=== PATIENT | male | born 1980 | race Caucasian/White ===

== ENCOUNTER 2017-04-15 23:33 | Emergency (ER) | payer BC, OTHER ==
[~2017-04-15] VITALS: Ht 172.7 cm; Wt 110.2 kg
[~2017-04-15 23:33] MED LIST: AMLO1TAB84
[2017-04-15 23:37] VITALS: Ht 172.7 cm; Wt 110.2 kg
[2017-04-16] MEDS ORDERED: ONDANSETRON 4 MG INJ IV STA (00:12)
[2017-04-16] MEDS ORDERED: KETOROLAC 30 MG INJ IV STA (00:12)
[2017-04-16] MEDS ORDERED: LACTATED RINGER'S 1,000 ML IV ONE (00:30)
[2017-04-16 00:45] LABS: BASOPHIL # 0.1 10^3/ul (0.0-0.1); BASOPHILS % 0.7 % (0.0-2.0); EOSINOPHILS # 0.2 10^3/ul (0.0-0.5); EOSINOPHILS % 2.2 % (0.0-7.0); HEMATOCRIT 44.2 % (42.0-52.0); LYMPHOCYTES # 2.6 10^3/ul (0.8-2.9); LYMPHOCYTES % 26.4 % (15.0-51.0); MEAN CORPUSCULAR HEMOGLOBIN 28.4 pg (29.0-33.0); MEAN CORPUSCULAR HGB CONC 33.9 g/dl (32.0-37.0); MEAN CORPUSCULAR VOLUME 83.7 fl (82.0-101.0); MEAN PLATELET VOLUME 10.6 fl (7.4-10.4); MONOCYTE # 0.7 10^3/ul (0.3-0.9); MONOCYTES % 7.4 % (0.0-11.0); NEUTROPHIL # 6.1 10^3/ul (1.6-7.5); NEUTROPHILS % 62.7 % (39.0-77.0); PLATELET COUNT 253 10^3/UL (140-415); RED BLOOD COUNT 5.28 10^6/ul (4.70-6.10); RED CELL DISTRIBUTION WIDTH 12.9 % (11.5-14.5); WHITE BLOOD COUNT 9.7 10^3/ul (4.8-10.8)
[2017-04-16 01:03] LABS: ADD UMIC YES; UR ASCORBIC ACID NEGATIVE (NEGATIVE); UR BILIRUBIN (Dip) NEGATIVE (NEGATIVE); UR BLOOD (Dip) 2+ mg/dL (NEGATIVE); UR CLARITY CLEAR (CLEAR); UR COLOR STRAW (YELLOW); UR GLUCOSE (Dip) NEGATIVE (NEGATIVE); UR KETONES (Dip) NEGATIVE (NEGATIVE); UR LEUKOCYTE ESTERASE (Dip) NEGATIVE Leu/ul (NEGATIVE); UR NITRITE (Dip) NEGATIVE (NEGATIVE); UR RBC 31 /HPF (0-5); UR TOTAL PROTEIN (Dip) NEGATIVE (NEGATIVE); UR UROBILINOGEN (Dip) NEGATIVE (NEGATIVE)
[2017-04-16 01:06] LABS: ALBUMIN 4.3 g/dl (3.3-4.9); ALBUMIN/GLOBULIN RATIO 1.13; BILIRUBIN,INDIRECT 0.3 mg/dl (0-1.1); BILIRUBIN,TOTAL 0.3 mg/dl (0.2-1.3); CALCIUM 9.3 mg/dl (8.4-10.2); CREATININE 0.98 mg/dl (0.61-1.24); POTASSIUM 3.4 mmol/L (3.5-5.1); TOTAL PROTEIN 8.1 g/dl (6.1-8.1)
--- NOTE | 2017-04-16 01:36 | RADRPT ---
PROCEDURE: CT Abdomen and pelvis without contrast. CLINICAL INDICATION: Abdominal pain. TECHNIQUE: CT scan of the abdomen and pelvis was performed on a multi-detector high-resolution CT scanner. Contiguous axial images were obtained from the lung bases to the ischial tuberosities wit hout intravenous contrast. Coronal and sagittal reformatted images were also obtained. Images were reviewed on the PACS workstation. DICOM images are available. One or more of the following dose reduction techniques were used: - Automated exposure control. - Adjustment of the mA and/or kV according to patient size. - Use of iterative reconstruction technique. Exam CTD/vol = 21.84 mGy. Total exam DLP = 1552.01 mGy-cm. COMPARISON: None. FINDINGS: Evaluation of the lung bases demonstrates mild bibasilar atelectasis. Abdomen: The liver is normal in size and diffusely low in attenuation consistent with fatty infiltr ation. There is no focal mass or dilatation of the biliary tree. The gallbladder is not distended. The spleen, pancreas and bilateral adrenal glands are within normal limits. Bilateral kidneys are normal in size with no contour deforming mass identified. There is no radiopaque renal calculus id entified. There is mild right-sided hydronephrosis. There is a 4 mm calculus within the right proxi mal ureter. There is a left mesenteric calcification measuring 3.6 x 3.1 cm. The abdominal aorta i s of normal caliber. There is no abnormal bowel wall thickening or distension. There is no bowel obstruction or free air . A normal appendix is identified. There is no diverticulosis or diverticulitis. There is no asci jennyfer. Pelvis: The bladder is unremarkable. There is a small left inguinal hernia containing fat. The pr ostate and seminal vesicles are within normal limits. There is no significant pelvic adenopathy or free fluid. Evaluation of the osseous structures demonstrates no suspicious lytic or blastic lesion. IMPRESSION: Right proximal ureteral 4 mm calculus with mild right-sided hydronephrosis. Left mesenteric calcification suggestive of old infectious/granulomatous disease. Fatty infiltration of the liver. Small left inguinal hernia containing fat. .Meño Taylor MD, Date Time Electronically viewed and signed by .Meño Taylor MD, on 04/16/2017 01:36 .T/
[2017-04-16] MEDS ORDERED: morphine 4 MG/ML VIAL IV STA (02:19)
[2017-04-16] MEDS ORDERED: HYDR-906 PO (02:21)
[2017-04-16] MEDS ORDERED: TAMS-14 PO (02:21)
[2017-04-16] MEDS ORDERED: IBUP-1542 PO (02:21)
[2017-04-16] MEDS ORDERED: ONDA4TAB14 PO (02:22)
--- NOTE | 2017-04-16 02:29 | ERD ---
ER Documentation Chief Complaint Chief Complaint R flank pain radiating to front just 2 mins ago HPI Patient is a 37-year-old male who presents to the ED for concerns of right flank pain radiating to his right lower quadrant started 1 hour prior to arrival. Patient states the pain is constant. Patient reports nausea and vomiting. Patient states he vomited approximately 5-6 times due to the pain. Patient denies any fevers, chills, dysuria, frequency, hematuria. Patient denies any falls or trauma. Patient denies any chest pain, shortness breath, left upper extremity pain, loss of consciousness. Patient denies any previous history of kidney stones. ROS All systems reviewed and are negative except as per history of present illness. Medications Home Meds Active Scripts Ondansetron (Ondansetron Odt) 4 Mg Tab.rapdis, 4 MG PO Q6H Y for NAUSEA AND/OR VOMITING, #10 TAB Prov:YU VILLELA PA-C 04/16/17 Ibuprofen* (Motrin*) 600 Mg Tab, 600 MG PO Q6, #30 TAB Prov:YU VILLELA PA-C 04/16/17 Tamsulosin Hcl* (Flomax*) 0.4 Mg Cap.er.24h, 0.4 MG PO BID, #30 CAP Prov:YU VILLELA PA-C 04/16/17 Hydrocodone/Acetaminophen ([place] 5-325 Tablet) 1 Each Tablet, 1 TAB PO Q6H Y for PAIN, #7 TAB Prov:YU VILLELA PA-C 04/16/17 Reported Medications Amlodipine-Olmesartan (Mahnaz) 1 Tab Tablet 04/09/10 Allergies Allergies: Coded Allergies: No Known Allergies (Verified Allergy, Mild, 04/09/10) PMhx/Soc History of Surgery: No Anesthesia Reaction: No Hx Neurological Disorder: No Hx Respiratory Disorders: No Hx Cardiac Disorders: Yes (HTN) Hx Psychiatric Problems: No Hx Miscellaneous Medical Probl: No Hx Alcohol Use: No Hx Substance Use: No Hx Tobacco Use: No Smoking Status: Never smoker Physical Exam Vitals Vital Signs Date Time Temp Pulse Resp B/P Pulse Ox O2 Delivery O2 Flow Rate FiO2 04/15/17 23:37 99.1 96 18 148/86 98 Physical Exam GENERAL: Well-developed, well-nourished male. Appears in pain. Patient noted to have difficulty finding position of comfort on gurney. HEAD: Normocephalic, atraumatic. EYES: Pupils are equally reactive bilaterally. EOMs grossly intact. No conjunctival erythema. ENT: Moist mucous membranes. No uvula deviation. No kissing tonsils. NECK: Supple. No meningismus. Normal range of motion of the neck. LUNG: Clear to auscultation bilaterally. No rhonchi, wheezing, rales or coarse breath sounds. HEART: Regular rate and rhythm. No murmurs, rubs or gallops. ABDOMEN: No scars, ecchymosis or rashes noted. Soft, and nondistended. Tender to palpation in the right lower quadrant. Positive bowel sounds in all four quadrants. No rebound tenderness, no guarding. (-) McBurney's point tenderness. R CVA tenderness. BACK: No midline tenderness. EXTREMITIES: Equal pulses bilaterally. No peripheral clubbing, cyanosis or edema. No unilateral leg swelling. NEUROLOGIC: Alert and oriented. Moving all four extremities without any difficulty. Normal speech. Steady gait. SKIN: Normal color. Warm and dry. No rashes or lesions. Result Diagram: 04/16/17 0020 04/16/17 0020 Results 24 hrs Laboratory Tests Test 04/16/17 00:20 White Blood Count 9.710^3/ul Red Blood Count 5.2810^6/ul Hemoglobin 15.0g/dl Hematocrit 44.2% Mean Corpuscular Volume 83.7fl Mean Corpuscular Hemoglobin 28.4pg Mean Corpuscular Hemoglobin Concent 33.9g/dl Red Cell Distribution Width 12.9% Platelet Count 51461^3/UL Mean Platelet Volume 10.6fl Neutrophils % 62.7% Lymphocytes % 26.4% Monocytes % 7.4% Eosinophils % 2.2% Basophils % 0.7% Nucleated Red Blood Cells % 0.0/100WBC Neutrophils # 6.110^3/ul Lymphocytes # 2.610^3/ul Monocytes # 0.710^3/ul Eosinophils # 0.210^3/ul Basophils # 0.110^3/ul Nucleated Red Blood Cells # 0.010^3/ul Urine Color STRAW Urine Clarity CLEAR Urine pH 7.0 Urine Specific [place] 1.010 Urine Ketones NEGATIVEmg/dL Urine Nitrite NEGATIVEmg/dL Urine Bilirubin NEGATIVEmg/dL Urine Urobilinogen NEGATIVEmg/dL Urine Leukocyte Esterase NEGATIVELeu/ul Urine Microscopic RBC 31/HPF Urine Microscopic WBC 1/HPF Urine Hemoglobin 2+mg/dL Urine Glucose NEGATIVEmg/dL Urine Total Protein NEGATIVEmg/dl Sodium Level 147mmol/L Potassium Level 3.4mmol/L Chloride Level 104mmol/L Carbon Dioxide Level 31mmol/L Anion Gap 15 Blood Urea Nitrogen 13mg/dl Creatinine 0.98mg/dl Glucose Level 138mg/dl Calcium Level 9.3mg/dl Total Bilirubin 0.3mg/dl Direct Bilirubin 0.00mg/dl Indirect Bilirubin 0.3mg/dl Aspartate Amino Transf (AST/SGOT) 43IU/L Alanine Aminotransferase (ALT/SGPT) 84IU/L Alkaline Phosphatase 92IU/L Total Protein 8.1g/dl Albumin 4.3g/dl Globulin 3.80g/dl Albumin/Globulin Ratio 1.13 Lipase 120U/L Current Medications Medications (Trade) Dose Ordered Sig/Tatiana Route PRN Reason Start Time Stop Time Status Last Admin Dose Admin Ondansetron HCl (Zofran Inj) 4 mg ONCE STAT IV 04/16/17 00:12 04/16/17 00:15 DC 04/16/17 00:36 Ketorolac Tromethamine 30 mg 30 mg ONCE STAT IV 04/16/17 00:12 04/16/17 00:15 DC 04/16/17 00:36 Lactated Ringer's (Lr) 1,000 ml @ 1,000 mls/hr Q1H ONCE IV 04/16/17 00:30 04/16/17 01:29 DC 04/16/17 00:36 Morphine Sulfate (morphine) 4 mg ONCE STAT IV 04/16/17 02:19 04/16/17 02:20 DC 04/16/17 02:40 Procedures/MDM ED COURSE: The patient was stable throughout ED course. I kept the patient and/or family informed of laboratory and diagnostic imaging results throughout the ED course. DIAGNOSTIC IMAGING: Read by radiologist. Patient: KARUNA ACOSTA : 1980 Age: 37 Sex: M MR #: [id number] DOS: 04/16/17 0012 Ordering MD: YU VILLELA PA-C Location: [facility] Room/Bed: PROCEDURE: CT Abdomen and pelvis without contrast. CLINICAL INDICATION: Abdominal pain. TECHNIQUE: CT scan of the abdomen and pelvis was performed on a multi- detector high-resolution CT scanner. Contiguous axial images were obtained from the lung bases to the ischial tuberosities without intravenous contrast. Coronal and sagittal reformatted images were also obtained. Images were reviewed on the PACS workstation. DICOM images are available. One or more of the following dose reduction techniques were used: - Automated exposure control. - Adjustment of the mA and/or kV according to patient size. - Use of iterative reconstruction technique. Exam CTD/vol = 21.84 mGy. Total exam DLP = 1552.01 mGy-cm. COMPARISON: None. FINDINGS: Evaluation of the lung bases demonstrates mild bibasilar atelectasis. Abdomen: The liver is normal in size and diffusely low in attenuation consistent with fatty infiltration. There is no focal mass or dilatation of the biliary tree. The gallbladder is not distended. The spleen, pancreas and bilateral adrenal glands are within normal limits. Bilateral kidneys are normal in size with no contour deforming mass identified. There is no radiopaque renal calculus identified. There is mild right-sided hydronephrosis. There is a 4 mm calculus within the right proximal ureter. There is a left mesenteric calcification measuring 3.6 x 3.1 cm. The abdominal aorta is of normal caliber. There is no abnormal bowel wall thickening or distension. There is no bowel obstruction or free air. A normal appendix is identified. There is no diverticulosis or diverticulitis. There is no ascites. Pelvis: The bladder is unremarkable. There is a small left inguinal hernia containing fat. The prostate and seminal vesicles are within normal limits. There is no significant pelvic adenopathy or free fluid. Evaluation of the osseous structures demonstrates no suspicious lytic or blastic lesion. IMPRESSION: Right proximal ureteral 4 mm calculus with mild right-sided hydronephrosis. Left mesenteric calcification suggestive of old infectious/granulomatous disease. Fatty infiltration of the liver. Small left inguinal hernia containing fat. .Meño Taylor MD, MD Date Time Electronically viewed and signed by .Meño Taylor MD, MD on 04/16/2017 01:36 .T/ CC: YU VILLELA PA-C PROCEDURES: None. MEDICATIONS GIVEN: Lactated Ringer's, Zofran, Toradol, morphine Patient tolerated medication well with no adverse reactions. Patient reported improvement in pain. MEDICAL DECISION MAKING: This is a 37-year-old male presents with right-sided flank pain radiating into his right lower quadrant 1 hour.. Vital signs were reviewed. Patient was afebrile. CBC showed no evidence of systemic infection or severe anemia. CMP showed no evidence of significant electrolyte abnormalities, severe acidosis, alkalosis, renal failure, or liver disease. Urine was positive for RBCs and hemoglobin. CT scan was obtained. CT scan showed Right proximal ureteral 4 mm calculus with mild right-sided hydronephrosis. Left mesenteric calcification suggestive of old infectious/granulomatous disease. Fatty infiltration of the liver. Small left inguinal hernia containing fat. He was given Toradol and morphine here in the ED. Patient reported improvement in pain prior to discharge. I advised the patient that he will need to follow-up with the urologist for his kidney stone. Referral information provided. At this time, patient's presentation is most consistent with nephrolithiasis and fatty infiltration of the liver. Low Suspicion for septic stone, sepsis, pyelonephritis, appendicitis, diverticulitis , kidney injury, bowel obstruction, bowel perforation. PRESCRIPTIONS: [place] Ibuprofen Tamsulosin. Zofran DISCHARGE: At this time, patient is stable for discharge and outpatient management. Patient was given a copy of all imaging studies and blood work obtained today. Patient advised to follow-up with urologist. Referral information provided. I have instructed the patient to follow-up with his/her primary care physician in 1-2 days. If symptoms persist, patient may need to see a specialist for further examinations and testing. I have instructed the patient to promptly return to the ER at any time for any new or worsening symptoms including increased increased pain, fever, nausea, vomiting, urinary changes or weakness. The patient and/or family expressed understanding of and agreement with this plan. All questions were answered. Home care instructions were provided. Patients blood pressure was elevated (>120/80) but appears stable without evidence of hypertensive emergency, hypertensive urgency or end-organ failure. I had discussion with the patient about the risks of hypertension. I have advised the patient to follow up with his/her primary care physician for outpatient monitoring and treatment for hypertension in 2-3 days. I have instructed the patient to return to the ER for any new or worsening symptoms including chest pain, shortness of breath, headache, blurred vision, confusion, nausea, vomiting or LOC. Disclaimer: Inadvertent spelling and grammatical errors are likely due to EHR/ dictation software use and do not reflect on the overall quality of patient care. Also, please note that the electronic time recorded on this note does not necessarily reflect the actual time of the patient encounter. Departure Diagnosis: Primary Impression: Nephrolithiasis Additional Impression: Fatty infiltration of liver Condition: Stable Patient Instructions: Kidney Stone W/ Colic Referrals: TIFFANY BAHENA MD,NICOLASA CHASE,EB SIU,KARL OSULLIVAN,MORGAN PLASCENCIA,DAYANA PEDRO,ASTRID HERRERA,FELIPE DE LA ROSA= [facility] YOU HAVE RECEIVED A MEDICAL SCREENING EXAM AND THE RESULTS INDICATE THAT YOU DO NOT HAVE A CONDITION THAT REQUIRES URGENT TREATMENT IN THE EMERGENCY DEPARTMENT. FURTHER EVALUATION AND TREATMENT OF YOUR CONDITION CAN WAIT UNTIL YOU ARE SEEN IN YOUR DOCTORS OFFICE WITHIN THE NEXT 1-2 DAYS. IT IS YOUR RESPONSIBILITY TO MAKE AN APPOINTMENT FOR FOLOW-UP CARE. IF YOU HAVE A PRIMARY DOCTOR --you should call your primary doctor and schedule an appointment IF YOU DO NOT HAVE A PRIMARY DOCTOR YOU CAN CALL OUR PHYSICIAN REFERRAL HOTLINE AT IF YOU CAN NOT AFFORD TO SEE A PHYSICIAN YOU CAN CHOSE FROM THE FOLLOWING [facility] [address] [facility] [address] [facility] [facility] [address] [facility] [address] [facility] [address] [facility]. [facility]. [address] [facility]. [facility] YOU HAVE RECEIVED A MEDICAL SCREENING EXAM AND THE RESULTS INDICATE THAT YOU DO NOT HAVE A CONDITION THAT REQUIRES URGENT TREATMENT IN THE EMERGENCY DEPARTMENT. FURTHER EVALUATION AND TREATMENT OF YOUR CONDITION CAN WAIT UNTIL YOU ARE SEEN IN YOUR DOCTORS OFFICE WITHIN THE NEXT 1-2 DAYS. IT IS YOUR RESPONSIBILITY TO MAKE AN APPOINTMENT FOR FOLOW-UP CARE. IF YOU HAVE A PRIMARY DOCTOR --you should call your primary doctor and schedule and appointment IF YOU DO NOT HAVE A PRIMARY DOCTOR YOU CAN CALL OUR PHYSICIAN REFERRAL HOTLINE AT . IF YOU CAN NOT AFFORD TO SEE A PHYSICIAN YOU CAN CHOSE FROM THE FOLLOWING [facility] INSTITUTIONS: [facility] [address] [place] [address] [facility] [address] [place] [address] [facility] [address] [place] [address] Additional Instructions: Drink plenty of fluids. Follow-up with the urologist on an outpatient basis. Call your primary care doctor TOMORROW for an appointment during the next 1-2 days.See the doctor sooner or return here if your condition worsens before your appointment time. YU VILLELA PA-C Apr 16, 2017 02:29
== END 2017-04-16 03:05 | disposition home or self-care (01) ==
LOC: FTE 23:33
DX: N20.0 Calculus of kidney (principal); K76.0 Fatty (change of) liver, not elsewhere classified; I10 Essential (primary) hypertension
CPT/HCPCS: 36415; 74176; 80053; 81001; 83690; 85025; 96374; 96375; 99285; J1885; J2270; J2405; J7120

== ENCOUNTER 2017-05-07 12:52 | Emergency (ER) | payer OTHER ==
[~2017-05-07] VITALS: Wt 109.4 kg
[~2017-05-07 12:52] MED LIST changes: +HYDR-906 PO; +IBUP-1542 PO; +ONDA4TAB14 PO; +TAMS-14 PO
[2017-05-07] MEDS ORDERED: KETOROLAC 30 MG INJ IV STA (14:54)
[2017-05-07] MEDS ORDERED: SOD CHLORIDE 0.9% 1,000 ML IV STA (14:54)
[2017-05-07] MEDS ORDERED: ONDANSETRON 4 MG INJ IV STA (14:54)
--- NOTE | 2017-05-07 15:03 | ERD ---
ER Documentation Chief Complaint Chief Complaint BACK PAIN, PAIN WITH URINATION HPI 37-year-old male history 4 mm kidney stone diagnosed 3 weeks ago returns to the emergency department for ongoing flank pain which radiates into his testicles with associated dysuria and increased frequency. Patient states he was seen by the emergency department and underwent CT imaging which demonstrated proximal 4 mm stone. Patient states he has not seen a stone passed yet and complains of intermittent pain. States he took a Motrin prior to arrival and currently reports a throbbing 4 out of 10 right-sided flank pain. He denies any testicular swelling or redness. He denies any hematuria or discharge. Denies fever chills. He denies other abdominal pain, nausea, vomiting, or diarrhea. ROS All systems reviewed and are negative except as per history of present illness. Medications Home Meds Active Scripts Ondansetron (Ondansetron Odt) 4 Mg Tab.rapdis, 4 MG PO Q6H Y for NAUSEA AND/OR VOMITING, #10 TAB Prov:YU VILLELA PA-C 04/16/17 Ibuprofen* (Motrin*) 600 Mg Tab, 600 MG PO Q6, #30 TAB Prov:YU VILLELA PA-C 04/16/17 Tamsulosin Hcl* (Flomax*) 0.4 Mg Cap.er.24h, 0.4 MG PO BID, #30 CAP Prov:YU VILLELA PA-C 04/16/17 Hydrocodone/Acetaminophen ([place] 5-325 Tablet) 1 Each Tablet, 1 TAB PO Q6H Y for PAIN, #7 TAB Prov:YU VILLELA PA-C 04/16/17 Reported Medications Amlodipine-Olmesartan (Mahnaz) 1 Tab Tablet 04/09/10 Allergies Allergies: Coded Allergies: No Known Allergies (Verified Allergy, Mild, 04/09/10) PMhx/Soc History of Surgery: No Anesthesia Reaction: No Hx Neurological Disorder: No Hx Respiratory Disorders: No Hx Cardiac Disorders: Yes (HTN) Hx Psychiatric Problems: No Hx Miscellaneous Medical Probl: No Hx Alcohol Use: No Hx Substance Use: No Hx Tobacco Use: No Smoking Status: Never smoker Physical Exam Vitals Vital Signs Date Time Temp Pulse Resp B/P Pulse Ox O2 Delivery O2 Flow Rate FiO2 05/07/17 12:59 98.4 100 17 159/89 97 Physical Exam Const: Developed, well-nourished, in no acute distress Head: Atraumatic Eyes: Normal Conjunctiva ENT: Normal External Ears, Nose and Mouth. Neck: Full range of motion..~ No meningismus. Resp: Clear to auscultation bilaterally Cardio: Regular rate and rhythm, no murmurs Abd: Soft, non tender, non distended. Normal bowel sounds Skin: No petechiae or rashes Back: Mild right-sided lower flank redness to palpation. No left-sided tenderness. Ext: No cyanosis, or edema Neur: Awake and alert Psych: Normal Mood and Affect Result Diagram: 05/07/17 1150 05/07/17 1150 Results 24 hrs Laboratory Tests Test 05/07/17 11:50 05/07/17 15:20 White Blood Count 9.210^3/ul Red Blood Count 5.4810^6/ul Hemoglobin 15.6g/dl Hematocrit 45.5% Mean Corpuscular Volume 83.0fl Mean Corpuscular Hemoglobin 28.5pg Mean Corpuscular Hemoglobin Concent 34.3g/dl Red Cell Distribution Width 13.1% Platelet Count 01521^3/UL Mean Platelet Volume 10.6fl Neutrophils % 57.4% Lymphocytes % 29.1% Monocytes % 8.3% Eosinophils % 3.7% Basophils % 1.1% Nucleated Red Blood Cells % 0.0/100WBC Neutrophils # 5.310^3/ul Lymphocytes # 2.710^3/ul Monocytes # 0.810^3/ul Eosinophils # 0.310^3/ul Basophils # 0.110^3/ul Nucleated Red Blood Cells # 0.010^3/ul Sodium Level 144mmol/L Potassium Level 3.5mmol/L Chloride Level 103mmol/L Carbon Dioxide Level 28mmol/L Anion Gap 17 Blood Urea Nitrogen 11mg/dl Creatinine 0.97mg/dl Glucose Level 100mg/dl Calcium Level 9.6mg/dl Total Bilirubin 0.2mg/dl Direct Bilirubin 0.00mg/dl Indirect Bilirubin 0.2mg/dl Aspartate Amino Transf (AST/SGOT) 37IU/L Alanine Aminotransferase (ALT/SGPT) 74IU/L Alkaline Phosphatase 97IU/L Total Protein 8.4g/dl Albumin 4.7g/dl Globulin 3.70g/dl Albumin/Globulin Ratio 1.27 Lipase 123U/L Urine Color STRAW Urine Clarity CLEAR Urine pH 8.0 Urine Specific [place] 1.008 Urine Ketones NEGATIVEmg/dL Urine Nitrite NEGATIVEmg/dL Urine Bilirubin NEGATIVEmg/dL Urine Urobilinogen NEGATIVEmg/dL Urine Leukocyte Esterase NEGATIVELeu/ul Urine Hemoglobin NEGATIVEmg/dL Urine Glucose NEGATIVEmg/dL Urine Total Protein NEGATIVEmg/dl Current Medications Medications (Trade) Dose Ordered Sig/Tatiana Route PRN Reason Start Time Stop Time Status Last Admin Dose Admin Sodium Chloride (NS) 1,000 ml @ 1,000 mls/hr Q1H STAT IV 05/07/17 14:54 05/07/17 15:53 DC 05/07/17 15:04 Ondansetron HCl (Zofran Inj) 4 mg ONCE STAT IV 05/07/17 14:54 05/07/17 14:56 DC 05/07/17 15:04 Ketorolac Tromethamine (Toradol) 30 mg ONCE STAT IV 05/07/17 14:54 05/07/17 14:56 DC 05/07/17 15:04 Procedures/MDM PROCEDURE: Ultrasound kidneys CLINICAL INDICATION: Flank pain TECHNIQUE: Lord scale and color imaging COMPARISON: None FINDINGS: Right kidney measures 4.6 cm, left kidney measures 7.4 cm without stones. Mild right hydronephrosis noted. Normal cortical thickness and echogenicity is seen. There is a 0.9 cm echogenic lesion noted within the nondistended bladder suggestive of stone. Bladder residual 70 cc. IMPRESSION: Mild right hydronephrosis Bladder stone. PROCEDURE: Scrotal ultrasound CLINICAL INDICATION: Scrotal pain TECHNIQUE: Multiple lord scale, color Doppler, and spectral Doppler images of the scrotum were obtained. Images were reviewed on a high-resolution PACS workstation. COMPARISON: None FINDINGS: The right testes measures 3.5 x 1.7 x 3.2 cm and the left testes measures 3.6 x 1.8 x 3.1 cm. The testes are normal in size and echogenicity with normal color flow. The right epididymis measures 8.9 x 6.2 mm and the left epididymis measures 13.2 x 7.4 mm. A left epididymal head cyst is seen measuring 7.6 millimeters in size. The epididymis bilaterally are normal in size and echogenicity. No varicocele is identified. Small bilateral hydroceles are seen. IMPRESSION: 1. Small bilateral hydroceles. 2. Small left epididymal head cyst. 3. Otherwise, unremarkable scrotal ultrasound. 37-year-old male who returns to the emergency department for ongoing right- sided flank pain which radiates into his testicle and diagnosed with a proximal ureter 4 mm kidney stone with right-sided hydronephrosis. States he has been treating his pain with Motrin and Flomax with mild relief. Returns today because of ongoing pain as well as dysuria and increased urinary frequency. He denied fever, chills, abdominal pain, vomiting or diarrhea. The abdomen was nontender. Vital signs reviewed, patient afebrile upon arrival. Patient with a history of hypertension, blood pressure was mildly elevated. CBC showed no evidence of systemic infection or severe anemia. CMP showed no evidence of electrolyte abnormalities, severe acidosis, alkalosis , renal failure, or liver disease. Lipase showed no evidence of acute pancreatitis. UA showed no evidence of acute infection or hematuria. Received fluids as well as pain panel in the emergency department and reports improvement of symptoms. Ultrasound with evidence of a stone within the bladder and mild hydronephrosis At this time low suspicion for infection or obstructive stone, testicular torsion, urinary tract infection, pyelonephritis, acute appendicitis, diverticulitis, small bowel obstruction, pancreatitis, or other acute abdomen. No suspicion for severe systemic illness or sepsis. Recommended for him to follow-up with the urologist for ongoing pain. I will supply him with additional pain medicine and muscle relaxants. Advised to contain hydration. Return precautions discussed. Based on patient's history of present illness and physical examination the decision was made to discharge. The patient was re-evaluated after ED treatment and stabilizing measures, and symptoms have improved. There is no evidence of life threatening injuries or illnesses at this time. On re-examination, patient resting in no distress, stable vital signs, reports feeling better and safe for discharge with outpatient follow up with PMD in 1-2 days. Patient given return precautions. Departure Diagnosis: Primary Impression: Urolithiasis Urinary calculus location: other lower urinary tract location Qualified Code : N21.8 - Calculus of other lower urinary tract location Additional Impressions: Dysuria Increased urinary frequency JOYCE GRIDER PA-C May 07, 2017 15:03
--- NOTE | 2017-05-07 15:23 | RADRPT ---
PROCEDURE: Ultrasound kidneys CLINICAL INDICATION: Flank pain TECHNIQUE: Lord scale and color imaging COMPARISON: None FINDINGS: Right kidney measures 4.6 cm, left kidney measures 7.4 cm without stones. Mild right hydronephrosis noted. Normal cortical thickness and echogenicity is seen. There is a 0.9 cm echogenic lesion noted within the nondistended bladder suggestive of stone. Bladder residual 70 cc. IMPRESSION: Mild right hydronephrosis Bladder stone. RPTAT: [facility] Physician Aleksandr Date Time Electronically viewed and signed by Physician Aleksandr on 05/07/2017 15:23 MB/
[2017-05-07 15:33] LABS: BASOPHIL # 0.1 10^3/ul (0.0-0.1); BASOPHILS % 1.1 % (0.0-2.0); EOSINOPHILS # 0.3 10^3/ul (0.0-0.5); EOSINOPHILS % 3.7 % (0.0-7.0); HEMATOCRIT 45.5 % (42.0-52.0); HEMOGLOBIN 15.6 g/dl (14.0-18.0); LYMPHOCYTES # 2.7 10^3/ul (0.8-2.9); LYMPHOCYTES % 29.1 % (15.0-51.0); MEAN CORPUSCULAR HEMOGLOBIN 28.5 pg (29.0-33.0); MEAN CORPUSCULAR HGB CONC 34.3 g/dl (32.0-37.0); MEAN PLATELET VOLUME 10.6 fl (7.4-10.4); MONOCYTE # 0.8 10^3/ul (0.3-0.9); MONOCYTES % 8.3 % (0.0-11.0); NEUTROPHIL # 5.3 10^3/ul (1.6-7.5); NEUTROPHILS % 57.4 % (39.0-77.0); PLATELET COUNT 243 10^3/UL (140-415); RED BLOOD COUNT 5.48 10^6/ul (4.70-6.10); RED CELL DISTRIBUTION WIDTH 13.1 % (11.5-14.5); WHITE BLOOD COUNT 9.2 10^3/ul (4.8-10.8)
--- NOTE | 2017-05-07 15:33 | RADRPT ---
PROCEDURE: Scrotal ultrasound CLINICAL INDICATION: Scrotal pain TECHNIQUE: Multiple villeda scale, color Doppler, and spectral Doppler images of the scrotum were obt ained. Images were reviewed on a high-resolution PACS workstation. COMPARISON: None FINDINGS: The right testes measures 3.5 x 1.7 x 3.2 cm and the left testes measures 3.6 x 1.8 x 3.[address] stes are normal in size and echogenicity with normal color flow. The right epididymis measures 8.9 x 6.2 mm and the left epididymis measures 13.2 x 7.4 mm. A left epididymal head cyst is seen measuri ng 7.6 millimeters in size. The epididymis bilaterally are normal in size and echogenicity. No vari cocele is identified. Small bilateral hydroceles are seen. IMPRESSION: 1. Small bilateral hydroceles. 2. Small left epididymal head cyst. 3. Otherwise, unremarkable scrotal ultrasound. RPTAT: [facility] Physician Daniel Date Time Electronically viewed and signed by Physician Daniel on 05/07/2017 15:32 /
[2017-05-07 15:52] LABS: ADD UMIC NO; UR ASCORBIC ACID NEGATIVE (NEGATIVE); UR BILIRUBIN (Dip) NEGATIVE (NEGATIVE); UR BLOOD (Dip) NEGATIVE (NEGATIVE); UR CLARITY CLEAR (CLEAR); UR COLOR STRAW (YELLOW); UR GLUCOSE (Dip) NEGATIVE (NEGATIVE); UR KETONES (Dip) NEGATIVE (NEGATIVE); UR LEUKOCYTE ESTERASE (Dip) NEGATIVE Leu/ul (NEGATIVE); UR NITRITE (Dip) NEGATIVE (NEGATIVE); UR SPECIFIC GRAVITY (Dip) 1.008 (1.003-1.030); UR TOTAL PROTEIN (Dip) NEGATIVE (NEGATIVE); UR UROBILINOGEN (Dip) NEGATIVE (NEGATIVE)
[2017-05-07 15:55] LABS: ALBUMIN 4.7 g/dl (3.3-4.9); ALBUMIN/GLOBULIN RATIO 1.27; BILIRUBIN,INDIRECT 0.2 mg/dl (0-1.1); BILIRUBIN,TOTAL 0.2 mg/dl (0.2-1.3); CALCIUM 9.6 mg/dl (8.4-10.2); CREATININE 0.97 mg/dl (0.61-1.24); POTASSIUM 3.5 mmol/L (3.5-5.1); TOTAL PROTEIN 8.4 g/dl (6.1-8.1)
[2017-05-07] MEDS ORDERED: DIAZ-90 PO (16:09)
[2017-05-07] MEDS ORDERED: NAPR-260 PO (16:09)
[2017-05-07] MEDS ORDERED: PHEN-537 PO (16:11)
[2017-05-07 16:42] VITALS: BP 135/75; PULSE 78; RESP 18; TEMP 98.6
== END 2017-05-07 16:44 | disposition home or self-care (01) ==
LOC: FTE 12:52
DX: N21.8 Other lower urinary tract calculus (principal); I10 Essential (primary) hypertension
CPT/HCPCS: 36415; 76775; 76870; 80053; 81003; 83690; 85025; 96374; 96375; 99285; J1885; J2405; J7030

== ENCOUNTER 2017-10-09 12:00 | Emergency (ER) | END 2017-10-09 16:53 | disposition home or self-care (01) ==

== ENCOUNTER 2018-01-12 19:15 | Emergency (ER) | END 2018-01-13 00:40 | disposition home or self-care (01) ==

== ENCOUNTER 2018-05-24 17:06 | Emergency (ER) | payer OTHER ==
[~2018-05-24] VITALS: Ht 175.3 cm; Wt 110.9 kg
[~2018-05-24 17:06] MED LIST changes: +DIAZ5TAB PO; +HYDR-4011 PO; -HYDR-906 PO; +LORA-441 PO; +NAPR-985 PO; +ONDA4TAB8 PO; +PHEN-537 PO
[2018-05-24 17:21] VITALS: BP 148/101; PULSE 91; RESP 18; Ht 175.3 cm; Wt 110.9 kg
[2018-05-24] MEDS ORDERED: TAMS-14 PO (21:39)
[2018-05-24] MEDS ORDERED: IBUP-1542 PO (21:40)
--- NOTE | 2018-05-25 02:17 | ERD ---
ER Documentation Chief Complaint Chief Complaint pelvic pain radiating to L abdomen X 1 day, Hx kidney stones HPI 38-year-old male presents for lower left abdomen pain times 1 day. He states that he has history of kidney stones. He states that the pain is similar to what he had before. States the pain on the left abdomen radiates down to the testicular area. He notes that the pain is 7 out of 10. Pain lasts for about 7 minutes intermittently. Notes 2/10 pain currently. Denies nausea or vomiting. He has had multiple CT scans in the past for his abdominal pain and states that he rather have an ultrasound this time. Denies fevers or chills. Denies chest pain or shortness of breath. ROS All systems reviewed and are negative except as per history of present illness. Medications Home Meds Active Scripts Ibuprofen* (Ibuprofen*) 600 Mg Tablet, 600 MG PO Q6H PRN for PAIN, #30 TAB Prov:MORGAN TREVIÑO DO 05/24/18 Tamsulosin Hcl* (Flomax*) 0.4 Mg Cap.er.24h, 0.4 MG PO DAILY for kidney stone, #30 CAP Prov:MORGAN TREVIÑO DO 05/24/18 Ondansetron Hcl* (Zofran*) 4 Mg Tablet, 4 MG PO Q6H for NAUSEA AND/OR VOMITING, #30 TAB Prov:JESSIE MAYERS 01/13/18 Hydrocodone/Acetaminophen ([place] 5-325 Tablet) 1 Each Tablet, 1 TAB PO Q6H PRN for PAIN, #20 TAB Prov:JESSIE MAYERS 01/13/18 Ibuprofen* (Motrin*) 600 Mg Tab, 600 MG PO Q6, #30 TAB Prov:JESSIE MAYERS 01/13/18 Lorazepam* (Ativan*) 0.5 Mg Tablet, 0.5 MG PO Q8, #10 TAB Prov:BEBE BRADY MD 10/09/17 Hydrocodone/Acetaminophen ([place] 5-325 Tablet) 1 Each Tablet, 1 TAB PO Q6H PRN for PAIN, #7 TAB Prov:BEBE BRADY MD 10/09/17 Phenazopyridine Hcl* (Pyridium*) 100 Mg Tab, 100 MG PO TID PRN for URINARY PAIN, #8 TAB Prov:JOYCE GRIDER PA-C 05/07/17 Naproxen* (Naprosyn*) 500 Mg Tablet, 500 MG PO BID PRN for PAIN AND/OR INFLAMMATION, #30 TAB Prov:JOYCE GRIDER CLEMENT 05/07/17 Diazepam* (Valium*) 5 Mg Tablet, 5 MG PO Q8, #12 TAB Prov:JOYCE GRIDER CLEMENT 05/07/17 Ondansetron (Ondansetron Odt) 4 Mg Tab.rapdis, 4 MG PO Q6H PRN for NAUSEA AND/OR VOMITING, #10 TAB Prov:MANOHARYU TREVINO 04/16/17 Ibuprofen* (Motrin*) 600 Mg Tab, 600 MG PO Q6, #30 TAB Prov:MANOHARYU 04/16/17 Tamsulosin Hcl* (Flomax*) 0.4 Mg Cap.er.24h, 0.4 MG PO BID, #30 CAP Prov:YU VILLELA PA-C 04/16/17 Hydrocodone/Acetaminophen ([place] 5-325 Tablet) 1 Each Tablet, 1 TAB PO Q6H PRN for PAIN, #7 TAB Prov:MANOHARYU 04/16/17 Reported Medications Amlodipine-Olmesartan (Mahnaz) 1 Tab Tablet 04/09/10 Allergies Allergies: Coded Allergies: No Known Allergies (Verified Allergy, Mild, 01/12/18) PMhx/Soc History of Surgery: No Anesthesia Reaction: No Hx Neurological Disorder: No Hx Respiratory Disorders: No Hx Cardiac Disorders: Yes (HTN) Hx Psychiatric Problems: No Hx Miscellaneous Medical Probl: No Hx Alcohol Use: No Hx Substance Use: No Hx Tobacco Use: No Smoking Status: Never smoker Physical Exam Vitals Vital Signs Date Temp Pulse Resp B/P (MAP) Pulse Ox O2 O2 Flow FiO2 Time Delivery Rate 05/24/18 98.7 91 18 148/101 96 17:21 (117) Physical Exam Const: No acute distress Resp: Clear to auscultation bilaterally Cardio: Regular rate and rhythm, no murmurs Abd: Soft, non distended. Normal bowel sounds, there is pain to palpation over the left abdominal area and left pelvic area, no rebound or guarding noted. Skin: No petechiae or rashes Back: No midline tenderness Ext: No cyanosis, or edema Neur: Awake and alert Psych: Normal Mood and Affect Results 24 hrs Laboratory Tests Test 05/24/18 20:10 Urine Color YELLOW Urine Clarity SLIGHTLY CLOUDY Urine pH 6.0 Urine Specific [place] 1.017 Urine Ketones NEGATIVE mg/dL Urine Nitrite NEGATIVE mg/dL Urine Bilirubin NEGATIVE mg/dL Urine Urobilinogen NEGATIVE mg/dL Urine Leukocyte Esterase NEGATIVE Radha/ul Urine Microscopic RBC > 182 /HPF Urine Microscopic WBC 7 /HPF Urine Hemoglobin 3+ mg/dL Urine Glucose NEGATIVE mg/dL Urine Total Protein 1+ mg/dl Procedures/MDM Medical Decision Making: Differential diagnosis includes but not limited to acute gastroenteritis, appendicitis, cholecystitis, pancreatitis, kidney stones. Appeared well on physical exam. Nontoxic appearing. UA showed hematuria Imaging: Renal US showed 1. Mild left-sided hydronephrosis. No definite renal stone is seen. 2. Normal sonographic findings of the right kidney. 3. Partial distension of the bladder without definite abnormality. Shared decision making Discussed with patient that given the hematuria and the flank pain with radiatio n to the going that there is height is possibility of kidney stones. However given that it was not visualized on renal ultrasound is difficult to know. Discussed with patient that CT abdomen be the only way to confirm kidney stones. Option is a trial of treatment with Flomax and pain management and see if the pain resolves on its own. Patient states that given that he has had multiple CT abdomens in the past he would rather try the treatment. Patient given strict return precautions. Prescription(s): Patient given prescription for flomax and motrin. Patient advised to follow up with PCP in 1-2 days. Patient advised to return to ED for new or worsening symptoms. Patient stable on discharge from the ED. Disclaimer: Inadvertent spelling and grammatical errors are likely due to EHR/dictation software use and do not reflect on the overall quality of patient care. Also, please note that the electronic time recorded on this note does not necessarily reflect the actual time of the patient encounter. Departure Diagnosis: Primary Impression: Pelvic pain in male Condition: Fair Patient Instructions: Kidney Stone (Urine) Referrals: COMMUNITY CLINICS YOU HAVE RECEIVED A MEDICAL SCREENING EXAM AND THE RESULTS INDICATE THAT YOU DO NOT HAVE A CONDITION THAT REQUIRES URGENT TREATMENT IN THE EMERGENCY DEPARTMENT. FURTHER EVALUATION AND TREATMENT OF YOUR CONDITION CAN WAIT UNTIL YOU ARE SEEN IN YOUR DOCTORS OFFICE WITHIN THE NEXT 1-2 DAYS. IT IS YOUR RESPONSIBILITY TO MAKE AN APPOINTMENT FOR FOLOW-UP CARE. IF YOU HAVE A PRIMARY DOCTOR --you should call your primary doctor and schedule an appointment IF YOU DO NOT HAVE A PRIMARY DOCTOR YOU CAN CALL OUR PHYSICIAN REFERRAL HOTLINE AT IF YOU CAN NOT AFFORD TO SEE A PHYSICIAN YOU CAN CHOSE FROM THE FOLLOWING [facility] [address] [facility] [address] [facility] [facility] [address] [facility] [address] [facility]. [facility] [address] [facility]. [facility]. [address] Additional Instructions: Llame al doctor MAANA y tara ravin LANDRY PARA DENTRO DE 1-2 ANDREWS.Dgale a la secretaria que nosotros le instruimos hacer esta landry.Avise o llame si clement condicin se empeora antes de la landry. Regresa aqui si peor o no mejor. Needs urology follow up MORGAN TREVIÑO DO May 25, 2018 02:17
== END 2018-05-24 22:12 | disposition home or self-care (01) ==
LOC: FTE 17:06
DX: R10.2 Pelvic and perineal pain (principal); I10 Essential (primary) hypertension
CPT/HCPCS: 76775; 81001